=== PATIENT | female | born 1980 | race Caucasian/White ===

== ENCOUNTER 2021-04-16 10:44 | Emergency (ER) | payer OTHER ==
[~2021-04-16] VITALS: Ht 162.6 cm; Wt 52.2 kg
[2021-04-16] MEDS ORDERED: SYNTHROID50 MCG PO (11:15)
== END 2021-04-16 15:57 | disposition home or self-care (01) ==
LOC: ER 10:44
DX: N39.0 Urinary tract infection, site not specified (principal); N23 Unspecified renal colic